=== PATIENT | male | born 1985 | race Caucasian/White ===

== ENCOUNTER 2017-03-31 08:44 | Inpatient (IN) | payer OTHER, MEDICARE ==
[~2017-03-31] VITALS: Ht 182.9 cm; Wt 86.2 kg
[~2017-03-31 08:44] MED LIST: ACETAMINOPHEN325 M1 PO; AMBEREN PO; BACTRIM 400-801 EACH PO; BACTROBAN CREAM30 G1 TOP; BISACODYL SUPP10 MG RE; CELEXA10 MG PO; CIPROFLOXACIN500 M1 PO; COLACE 100 MG100 MG PO; DANTRIUM25 MG PO; ENABLEX PO; ENABLEX15 MG PO; IBUPROFEN 800800 M1 PO; LORTAB 5 MG/5001 TAB PO; METAMUCIL POWD798 GM PO; ONE DAILY COMP1 EAC1 PO; OXYBUTYNIN; OXYBUTYNIN 5 MG5 M2 PO; SEE COMMENTS; VANCO1GM IV; VENTOLIN HFA 1818 GM INH; VITAMINC500 PO; ZINC CHELATE50 MG PO; [UNRECOGNIZED DRUG - REMARK]
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
[2017-03-31 13:40] VITALS: BP 139/74
[2017-03-31 20:00] VITALS: BP 129/75
[2017-04-01 03:50] VITALS: BP 144/81
[2017-04-01 04:32] LABS: MCH 19.5 pg (26.0-34.0); MCHC 29.8 g/dL (28.0-37.0); MCV 65.3 fL (80.0-100.0); MPV 6.5 fl. (7.2-11.1); RBC 3.07 mil/uL (4.50-6.00); RDW-CV 20.9 % (10.5-14.5); WBC 5.3 thou/uL (4.0-11.0)
[2017-04-01 04:56] LABS: ALBUMIN 1.8 g/dL (3.4-5.0); ALKALINE PHOSPHATASE 41 U/L (46-116); ANION GAP 8 mmol/L (7-16); BUN 13 mg/dL (7-18); CALCIUM 6.6 mg/dL (8.5-10.1); CHLORIDE 109 mmol/L (98-107); CO2 24 mmol/L (21-32); CREATININE 0.7 mg/dL (0.6-1.3); GLUCOSE 91 mg/dL (70-99); POTASSIUM 3.2 mmol/L (3.5-5.1); SGOT 10 U/L (15-37); SGPT 12 U/L (30-65); SODIUM 141 mmol/L (136-145); TOTAL PROTEIN 5.4 g/dL (6.4-8.2)
[2017-04-01 04:59] LABS: TOTAL BILIRUBIN < 0.1 mg/dL (<0.1-1.0)
[2017-04-01 09:00] VITALS: BP 109/53
[2017-04-01 16:59] VITALS: BP 111/57
[2017-04-01 21:00] VITALS: BP 136/67
[2017-04-02 00:37] VITALS: BP 126/74
[2017-04-02 04:00] VITALS: BP 123/68
[2017-04-02 08:00] VITALS: BP 126/63
[2017-04-02 12:50] LABS: HEMATOCRIT 26.1 % (42.0-52.0); HEMOGLOBIN 7.5 gm/dL (14.0-18.0); MCH 19.1 pg (26.0-34.0); MCHC 28.9 g/dL (28.0-37.0); MCV 66.1 fL (80.0-100.0); MPV 6.9 fl. (7.2-11.1); RBC 3.94 mil/uL (4.50-6.00); RDW-CV 21.9 % (10.5-14.5); WBC 7.2 thou/uL (4.0-11.0)
[2017-04-02 13:09] LABS: ALBUMIN 2.4 g/dL (3.4-5.0); CREATININE 0.8 mg/dL (0.6-1.3); POTASSIUM 4.2 mmol/L (3.5-5.1); TOTAL BILIRUBIN 0.1 mg/dL (<0.1-1.0); TOTAL PROTEIN 6.3 g/dL (6.4-8.2)
--- NOTE | 2017-04-02 13:42 | S ---
[address] [address] SURGICAL PATH RPT PROCEDURE Name: JESUS SANTOS Room: [address] IN ..#: [id number] Admission: 04/01/17 Date of : 85 Discharge: Report #: [id number] Path Case #: [id number] PATHOLOGY REPORT COLLECTION DATE: 03/31/2017 RECEIVED DATE: 03/31/2017 SUBMITTING PHYS: Dr. Tomas Bauer OTHER PHYS: Dr. Sun Dumont SPECIMEN(S) RECEIVED: A.Right ischial ulcer * * * * * * * * * * * * FINAL DIAGNOSIS: Right ischial ulcer: - Benign skin with nonspecific ulceration, pseudoepitheliomatous hyperplasia, mild hyperkeratosis and acute and chronic inflammation and fibrosis. (KOFI:jennie; 04/02/2017) PATHOLOGIST: Carlton Mandel M.D. REPORT ELECTRONICALLY SIGNED BY: Carlton Mandel M.D. DATE/TIME: 04/02/2017 13:42 * * * * * * * * * * * * GROSS PATHOLOGY: Received in formalin labeled "Jesus Santos, right ischial ulcer" and consists of 4 hassan skin segments ranging in size from 1.5 x 0.9 x 0.5 cm to 24.0 x 1.0 x 0.9 cm. No epidermal lesions are identified. Rigging Slinger sections are submitted as A1. (CHRISTIE; 04/01/2017) CLINICAL HISTORY: Decubitus ulcer INITIAL CPT CODE(S): A; 13235 Professional services performed by [facility] at [facility], [address] [place], [place] [address], [place] [address]. Technical services performed by [facility] at [address] [place] [address], [address], [place], [place] [address]. [facility] [address] [id number] SURGICAL PATH RPT PROCEDURE Name: JESUS SANTOS Room: [address] ADM IN [facility].#: [id number] Admission: 04/01/17 Date of : 85 Discharge: Report #: [id number] Path Case #: [id number] [place] [address] PHONE: [phone] DIRECTOR: Spencer Valdes M.D. * * * END OF REPORT * * *
[2017-04-02 17:10] VITALS: BP 121/59
[2017-04-02 20:00] VITALS: BP 108/51
[2017-04-03] VITALS: BP 99/53
[2017-04-03 05:00] VITALS: BP 110/65
[2017-04-03 08:00] VITALS: BP 99/49
[2017-04-03 20:00] VITALS: BP 114/58
[2017-04-04] VITALS: BP 113/59
[2017-04-04 08:50] VITALS: BP 126/62
[2017-04-04 16:00] VITALS: BP 128/79
[2017-04-04 20:15] VITALS: BP 125/54
[2017-04-05 11:37] VITALS: BP 118/53
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
[2017-04-05 16:00] VITALS: BP 120/59
[2017-04-05 21:05] VITALS: BP 126/54
[2017-04-06 08:25] VITALS: BP 104/62
[2017-04-06 16:00] VITALS: BP 108/51
[2017-04-07] VITALS: BP 112/47
[2017-04-07 09:45] VITALS: BP 113/59
[2017-04-07 15:57] VITALS: BP 117/52
[2017-04-07 19:40] VITALS: BP 125/53
[2017-04-08 05:47] LABS: ABSOLUTE EOSINOPHILS 0.7 thou/uL (0.0-0.7); ABSOLUTE LYMPHOCYTES 1.7 thou/uL (0.8-5.3); ABSOLUTE MONOCYTES 0.7 thou/uL (0.0-1.2); ABSOLUTE NEUTROPHILS 6.7 thou/uL (1.6-8.1); BASOPHILS 0.4 %; EOSINOPHILS 7.6 %; LYMPHOCYTES 16.9 %; MCH 19.2 pg (26.0-34.0); MCHC 29.2 g/dL (28.0-37.0); MCV 65.6 fL (80.0-100.0); MONOCYTES 7.1 %; MPV 7.1 fl. (7.2-11.1); NUCLEATED RBCS 0 /100WBC; PLATELET COUNT* 445 thou/uL (150-400); RBC 3.67 mil/uL (4.50-6.00); RDW-CV 20.4 % (10.5-14.5); WBC 9.9 thou/uL (4.0-11.0)
[2017-04-08 06:14] LABS: ALBUMIN 2.5 g/dL (3.4-5.0); CREATININE 0.9 mg/dL (0.6-1.3); POTASSIUM 3.7 mmol/L (3.5-5.1); TOTAL BILIRUBIN 0.1 mg/dL (<0.1-1.0); TOTAL PROTEIN 6.6 g/dL (6.4-8.2)
[2017-04-08 06:32] LABS: ANISOCYTOSIS 2+; HYPOCHROMASIA 3+; MICROCYTES 3+
[2017-04-08 06:33] LABS: POLYCHROMASIA 1+
[2017-04-08 07:56] LABS: ESR (SEDRATE) 89 mm/hr (0-15)
[2017-04-08 09:00] VITALS: BP 122/68
[2017-04-08 12:14] VITALS: BP 105/51; BP 110/50; BP 117/42; BP 120/58
[2017-04-08 16:15] VITALS: BP 120/58
[2017-04-09] VITALS: BP 111/46
[2017-04-09 06:47] LABS: HEMATOCRIT 28.8 % (42.0-52.0); HEMOGLOBIN 8.7 gm/dL (14.0-18.0); MCH 20.5 pg (26.0-34.0); MCHC 30.2 g/dL (28.0-37.0); MPV 7.2 fl. (7.2-11.1); RBC 4.24 mil/uL (4.50-6.00); RDW-CV 22.4 % (10.5-14.5); WBC 7.9 thou/uL (4.0-11.0)
[2017-04-09 07:02] LABS: CALCIUM 8.5 mg/dL (8.5-10.1); CREATININE 0.9 mg/dL (0.6-1.3); POTASSIUM 4.3 mmol/L (3.5-5.1)
[2017-04-09 08:45] VITALS: BP 116/50
[2017-04-09 16:35] VITALS: BP 107/45
[2017-04-10 00:08] VITALS: BP 104/55
[2017-04-10 06:26] LABS: HEMATOCRIT 28.2 % (42.0-52.0); HEMOGLOBIN 8.5 gm/dL (14.0-18.0); MCH 20.7 pg (26.0-34.0); MCHC 30.2 g/dL (28.0-37.0); MCV 68.6 fL (80.0-100.0); MPV 7.2 fl. (7.2-11.1); RBC 4.11 mil/uL (4.50-6.00); RDW-CV 23.2 % (10.5-14.5); WBC 10.6 thou/uL (4.0-11.0)
[2017-04-10 06:32] LABS: CALCIUM 8.1 mg/dL (8.5-10.1); POTASSIUM 4.3 mmol/L (3.5-5.1)
[2017-04-10 08:10] VITALS: BP 114/58
[2017-04-10 13:31] VITALS: BP 114/58
[2017-04-10] MEDS ORDERED: MERREM1 GM IV (13:33)
[2017-04-10 16:21] VITALS: BP 116/48
[2017-04-10 16:53] LABS: URINE BILIRUBIN NEGATIVE (Negative); URINE BLOOD 2+ (Negative); URINE CLARITY CLEAR; URINE COLOR YELLOW; URINE GLUCOSE-RANDOM NEGATIVE (Negative); URINE KETONES NEGATIVE (Negative); URINE LEUKOCYTES-REFLEX 1+ (Negative); URINE NITRITE-REFLEX NEGATIVE (Negative); URINE PROTEIN NEGATIVE (Negative); URINE UROBILINOGEN 0.2 E.U./dl (0.2-1.0)
[2017-04-10 17:03] LABS: BACTERIA-REFLEX 1-9 Few /HPF (None Seen); CASTS None Seen /LPF (None Seen); CRYSTALS None Seen /LPF (None Seen); SQUAMOUS >10 Many /LPF (0-3); URINE RBC 3-10 Few /HPF (0-2); URINE WBC-REFLEX 6-15 Few /HPF (0-5)
[2017-04-10 19:45] VITALS: BP 114/68
[2017-04-11 04:17] LABS: HEMATOCRIT 25.9 % (42.0-52.0); HEMOGLOBIN 7.9 gm/dL (14.0-18.0); MCHC 30.5 g/dL (28.0-37.0); MCV 68.9 fL (80.0-100.0); MPV 7.2 fl. (7.2-11.1); RBC 3.76 mil/uL (4.50-6.00); RDW-CV 23.6 % (10.5-14.5); WBC 6.7 thou/uL (4.0-11.0)
[2017-04-11 04:27] LABS: CALCIUM 7.9 mg/dL (8.5-10.1); CREATININE 0.9 mg/dL (0.6-1.3); POTASSIUM 4.1 mmol/L (3.5-5.1)
[2017-04-11 08:24] VITALS: BP 118/72
[2017-04-11 11:27] VITALS: BP 104/60
[2017-04-11 16:15] VITALS: BP 120/63; BP 122/61; BP 125/69; BP 127/62; BP 139/77
[2017-04-11 22:43] LABS: HEMATOCRIT 30.9 % (42.0-52.0); HEMOGLOBIN 9.4 gm/dL (14.0-18.0)
[2017-04-12 09:25] VITALS: BP 118/65
[2017-04-12 15:50] VITALS: BP 121/71
[2017-04-12 20:20] VITALS: BP 125/48
[2017-04-13 08:05] VITALS: BP 106/34
[2017-04-13 09:00] VITALS: BP 117/43
[2017-04-13 16:00] VITALS: BP 118/59
[2017-04-13 16:24] LABS: HEMATOCRIT 30.9 % (42.0-52.0); HEMOGLOBIN 9.5 gm/dL (14.0-18.0); MCH 21.8 pg (26.0-34.0); MCHC 30.9 g/dL (28.0-37.0); MCV 70.6 fL (80.0-100.0); MPV 7.1 fl. (7.2-11.1); NUCLEATED RBCS 0 /100WBC; PLATELET COUNT* 445 thou/uL (150-400); RBC 4.38 mil/uL (4.50-6.00); RDW-CV 25.1 % (10.5-14.5); WBC 7.8 thou/uL (4.0-11.0)
[2017-04-13 18:31] LABS: ABSOLUTE BASOPHILS 0.1 thou/uL (0.0-0.2); ABSOLUTE EOSINOPHILS 0.5 thou/uL (0.0-0.7); ABSOLUTE LYMPHOCYTES 1.7 thou/uL (0.8-5.3); ABSOLUTE MONOCYTES 0.6 thou/uL (0.0-1.2); ABSOLUTE NEUTROPHILS 4.8 thou/uL (1.6-8.1); PLATELET ESTIMATE INCREASED
[2017-04-13 18:33] LABS: ANISOCYTOSIS 2+; HYPOCHROMASIA 2+; MICROCYTES 2+
[2017-04-13 20:20] VITALS: BP 124/47
[2017-04-14 06:41] LABS: HEMATOCRIT 29.8 % (42.0-52.0); HEMOGLOBIN 9.1 gm/dL (14.0-18.0); MCH 21.8 pg (26.0-34.0); MCHC 30.7 g/dL (28.0-37.0); MCV 71.1 fL (80.0-100.0); MPV 7.5 fl. (7.2-11.1); RBC 4.19 mil/uL (4.50-6.00); RDW-CV 24.9 % (10.5-14.5); WBC 6.5 thou/uL (4.0-11.0)
[2017-04-14 06:52] LABS: ALBUMIN 2.4 g/dL (3.4-5.0); CREATININE 0.8 mg/dL (0.6-1.3); POTASSIUM 3.9 mmol/L (3.5-5.1); TOTAL BILIRUBIN 0.1 mg/dL (<0.1-1.0); TOTAL PROTEIN 6.3 g/dL (6.4-8.2)
[2017-04-14 08:45] VITALS: BP 125/72
[2017-04-14 16:00] VITALS: BP 114/62
[2017-04-14 20:15] VITALS: BP 118/52
[2017-04-15 04:52] LABS: HEMATOCRIT 29.5 % (42.0-52.0); HEMOGLOBIN 8.9 gm/dL (14.0-18.0); MCH 21.7 pg (26.0-34.0); MCHC 30.3 g/dL (28.0-37.0); MCV 71.6 fL (80.0-100.0); MPV 7.7 fl. (7.2-11.1); RBC 4.12 mil/uL (4.50-6.00); RDW-CV 25.3 % (10.5-14.5); WBC 7.7 thou/uL (4.0-11.0)
[2017-04-15 05:06] LABS: CREATININE 0.8 mg/dL (0.6-1.3)
[2017-04-15 09:30] VITALS: BP 125/53
[2017-04-15 15:46] VITALS: BP 99/51
[2017-04-16] VITALS: BP 115/48
[2017-04-16 07:39] LABS: HEMATOCRIT 32.5 % (42.0-52.0); MCH 21.8 pg (26.0-34.0); MCHC 30.7 g/dL (28.0-37.0); MCV 71.2 fL (80.0-100.0); MPV 7.1 fl. (7.2-11.1); RBC 4.56 mil/uL (4.50-6.00); RDW-CV 25.5 % (10.5-14.5); WBC 6.6 thou/uL (4.0-11.0)
[2017-04-16 07:50] LABS: CALCIUM 8.4 mg/dL (8.5-10.1); CREATININE 0.9 mg/dL (0.6-1.3); POTASSIUM 4.5 mmol/L (3.5-5.1)
[2017-04-16 08:10] VITALS: BP 110/66
[2017-04-16] MEDS ORDERED: NICOTINE TRANSD21 M1 TRANSDERM (10:14)
[2017-04-16] MEDS ORDERED: MUCINEX600 MG PO (10:14)
[2017-04-16] MEDS ORDERED: IBUPROFEN 400400 M2 PO (10:14)
[2017-04-16] MEDS ORDERED: MELATONIN5 M1 PO (10:14)
[2017-04-16] MEDS ORDERED: HYDROCODON-ACE1 EAC7 PO (10:14)
[2017-04-16] MEDS ORDERED: FERREX 150 PLU1 EAC1 PO (10:14)
[2017-04-16] MEDS ORDERED: FOLIC ACID1 MG PO (10:14)
[2017-04-16] MEDS ORDERED: PHENERGAN 25 MG25 M1 PO (10:14)
[2017-04-16] MEDS ORDERED: AMBIEN 5 MG TABL5 M1 PO (10:14)
[2017-04-16 13:14] VITALS: BP 114/58
--- NOTE | 2017-04-21 12:18 | OP ---
[address] [address] OPERATIVE REPORT Name: DONNAJESUS CASTILLO Room: [address] IN M.R.#: [id number] Admission: 04/01/17 Attend Phys: Tomas Bauer, Discharge: 04/16/17 Date of : 85 Report #: [id number] THIS REPORT FOR: //name// CC: Sun Bauer DATE OF SERVICE: 03/31/2017 PREOPERATIVE DIAGNOSIS: Paraplegia with stage IV right ischial decubitus ulcer, 15 cm x 7 cm. POSTOPERATIVE DIAGNOSIS: Paraplegia with stage IV right ischial decubitus ulcer, 15 cm x 7 cm. PROCEDURE: Excision of right ischial decubitus ulcer, partial ostectomy, partial ischiectomy and reconstruction with a hamstring myocutaneous flap. SURGEON: Tomas Bauer MD ANESTHESIA: General. INDICATIONS: I was asked to see this 31-year-old male who has been paraplegic for many years, presenting this time with a very large and deep right ischial decubitus ulcer of 2 years' duration and says that this is getting worse. He indeed had a very large extensive and deep right ischial decubitus ulcer with exposed ischial bone. Details of the operative procedure including risks, benefits, alternative treatments and possible complications like infection, bleeding, hematoma, scar, possibility of recurrence of the wound were all explained. DESCRIPTION OF PROCEDURE: Vancomycin was given intravenously within 1 hour prior to the commencement of surgery. While he was in the holding area, the surgical site was marked with the marking pen and the surgical details were again explained to the patient and to the family. He was then taken to the operating room and was placed in supine position. He was given endotracheal general anesthesia. After that, he was placed in prone position, taking care of all the pressure areas. The entire right gluteal area, and posterior thigh were cleaned, prepped with Betadine solution and draped with sterile sheets. First methylene blue dye was used to stain the lining of the ulcer. An incision was given around the decubitus ulcer using sharp dissection, first with knife and then with electrocautery. The entire ulcer lining was surgically excised. Specimen was sent for pathology[place] [address] OPERATIVE REPORT Name: DONNAJESUS CASTILLO Room: [address] IN [facility].#: [id number] Admission: 04/01/17 Attend Phys: Tomas Bauer, Discharge: 04/16/17 Date of : 85 Report #: [id number] ischiectomy of the ischial bone was accomplished using an osteotome. The sharp bony ends were smoothened with a rasp. The pocket was irrigated out with copious amount of normal saline solution, containing bacitracin. Hemostasis was accomplished with cautery. Reconstruction on this fairly large and deep wound was accomplished using a V-Y advancement flap based on hamstring muscles. The flap outline was marked on the skin surface. The skin incision was given and using further dissection with electrocautery, the flap was then isolated, dissected out and advanced. Then, #15 size AMANDA drain was placed in the wound and the definitive closure was with 0 Vicryl for the deeper tissues and 2-0 nylon and hugo for the skin. At the end of the procedure, the flap appeared vascular. Estimated blood loss was about 30 mL. Dressings were applied. He was then placed in supine position and transferred to the recovery room in stable condition. There were no intraoperative complications. <ELECTRONICALLY SIGNED> By: Tomas Bauer MD 04/21/17 1218 1352 [id number] Bauer MD /nt
[2017-05-26] MEDS ORDERED: DIPHENHIST50 MG PO (11:49)
[2017-05-26] MEDS ORDERED: JUVEN PACKET1 EAC1 PO (11:55)
[2017-05-26] MEDS ORDERED: NYAMYC15 GM TOP (11:57)
[2017-05-26] MEDS ORDERED: ENOXAPARIN40 MG/0.1 SUBQ (11:58)
[2017-05-26] MEDS ORDERED: PROTONIX40 M1 PO (11:59)
[2017-05-26] MEDS ORDERED: MIRALAX17 GM PO (11:59)
[2017-05-26] MEDS ORDERED: POLYSACCHARIDE150 MG PO (12:00)
[2017-05-26] MEDS ORDERED: SECURA PROTECTI50 GM TOP (12:03)
[2017-05-28] MEDS ORDERED: IBUPROFEN 400400 M2 PO (09:32)
[2017-05-28] MEDS ORDERED: HYDROCODON-ACE1 EAC7 PO (09:32)
[2017-05-28] MEDS ORDERED: HYDROCORTISONE30 G9 TOP (09:33)
[2017-05-28] MEDS ORDERED: ZINC OXIDE56.7 GM TOP (09:33)
[2017-05-28] MEDS ORDERED: TUMS PO (09:33)
[2017-05-28] MEDS ORDERED: BISAC-EVAC10 MG RECTAL (09:33)
== END 2017-04-16 16:35 | DRG 981 ==
LOC: M.SUR 08:44 → M.ORTHSURG 08:44 → M.SUR 13:44 → M.ORTHSURG 13:44 → M.SUR 13:48 → M.ORTHSURG 04-01 12:06 → M.3W 04-04 16:07
PROVIDERS: Family Medicine; Internal Medicine; Specialist; ADMIT Plastic Surgery
DX: L89.214 Pressure ulcer of right hip, stage 4 (principal); E44.0 Moderate protein-calorie malnutrition; G82.20 Paraplegia, unspecified; F17.210 Nicotine dependence, cigarettes, uncomplicated; N31.9 Neuromuscular dysfunction of bladder, unspecified; N20.0 Calculus of kidney; D50.0 Iron deficiency anemia secondary to blood loss (chronic); B96.5 Pseudomonas (aeruginosa) (mallei) (pseudomallei) as the cause of diseases classified elsewhere; B96.1 Klebsiella pneumoniae [K. pneumoniae] as the cause of diseases classified elsewhere; Z88.1 Allergy status to other antibiotic agents; Z91.040 Latex allergy status; Z22.322 Carrier or suspected carrier of Methicillin resistant Staphylococcus aureus; Z79.899 Other long term (current) drug therapy; Z68.25 Body mass index [BMI] 25.0-25.9, adult

== ENCOUNTER 2017-04-16 19:06 | Inpatient (IN) | payer OTHER, MEDICARE ==
[~2017-04-16 19:06] MED LIST changes: +AMBIEN 5 MG TABL5 M1 PO; +FERREX 150 PLU1 EAC1 PO; +FOLIC ACID1 MG PO; +HYDROCODON-ACE1 EAC7 PO; +IBUPROFEN 400400 M2 PO; +MELATONIN5 M1 PO; +MERREM1 GM IV; +MUCINEX600 MG PO; +NICOTINE TRANSD21 M1 TRANSDERM; +PHENERGAN 25 MG25 M1 PO
[2017-04-16 19:10] VITALS: BP 132/67
[2017-04-16 20:43] LABS: ABSOLUTE BASOPHILS 0.1 thou/uL (0.0-0.2); ABSOLUTE EOSINOPHILS 0.7 thou/uL (0.0-0.7); ABSOLUTE LYMPHOCYTES 1.5 thou/uL (0.8-5.3); ABSOLUTE MONOCYTES 0.5 thou/uL (0.0-1.2); ABSOLUTE NEUTROPHILS 6.1 thou/uL (1.6-8.1); BASOPHILS 1.1 %; EOSINOPHILS 8.3 %; MCHC 31.1 g/dL (28.0-37.0); MCV 70.9 fL (80.0-100.0); MPV 7.2 fl. (7.2-11.1); NUCLEATED RBCS 0 /100WBC; PLATELET COUNT* 411 thou/uL (150-400); POLYS 67.6 %; RBC 4.51 mil/uL (4.50-6.00); RDW-CV 25.8 % (10.5-14.5)
[2017-04-16 20:50] LABS: CALCIUM 8.3 mg/dL (8.5-10.1); CREATININE 0.8 mg/dL (0.6-1.3); POTASSIUM 4.3 mmol/L (3.5-5.1)
[2017-04-16 20:55] LABS: ALBUMIN 2.9 g/dL (3.4-5.0); TOTAL BILIRUBIN 0.2 mg/dL (<0.1-1.0)
[2017-04-16 21:06] LABS: ANISOCYTOSIS 2+; PLATELET ESTIMATE INCREASED; POIKILOCYTOSIS 1+; POLYCHROMASIA 1+
[2017-04-16 21:07] LABS: HYPOCHROMASIA 1+; MICROCYTES 2+; OVALOCYTES 1+; TARGET CELLS 1+
[2017-04-16 21:43] VITALS: BP 121/65
[2017-04-16 23:00] VITALS: BP 125/65
[2017-04-17 08:50] VITALS: BP 115/48
[2017-04-17 17:45] VITALS: BP 105/48
[2017-04-18 00:29] VITALS: BP 119/56
[2017-04-18 08:40] VITALS: BP 116/65
[2017-04-18 16:05] VITALS: BP 120/54
[2017-04-18 20:15] VITALS: BP 121/66
[2017-04-19 08:00] VITALS: BP 115/63
[2017-04-19 17:47] VITALS: BP 113/56
[2017-04-20 00:21] VITALS: BP 135/60
[2017-04-20 16:30] VITALS: BP 122/65
[2017-04-21] VITALS: BP 129/71
[2017-04-21 08:00] VITALS: BP 114/67
[2017-04-21 16:15] VITALS: BP 110/53
[2017-04-22 00:18] VITALS: BP 132/67
[2017-04-22 07:35] VITALS: BP 106/38
[2017-04-22 15:03] VITALS: BP 106/38
[2017-05-26] MEDS ORDERED: DIPHENHIST50 MG PO (11:49)
[2017-05-26] MEDS ORDERED: JUVEN PACKET1 EAC1 PO (11:55)
[2017-05-26] MEDS ORDERED: NYAMYC15 GM TOP (11:57)
[2017-05-26] MEDS ORDERED: ENOXAPARIN40 MG/0.1 SUBQ (11:58)
[2017-05-26] MEDS ORDERED: MIRALAX17 GM PO (11:59)
[2017-05-26] MEDS ORDERED: PROTONIX40 M1 PO (11:59)
[2017-05-26] MEDS ORDERED: POLYSACCHARIDE150 MG PO (12:00)
[2017-05-26] MEDS ORDERED: SECURA PROTECTI50 GM TOP (12:03)
[2017-05-28] MEDS ORDERED: IBUPROFEN 400400 M2 PO (09:32)
[2017-05-28] MEDS ORDERED: HYDROCODON-ACE1 EAC7 PO (09:32)
[2017-05-28] MEDS ORDERED: HYDROCORTISONE30 G9 TOP (09:33)
[2017-05-28] MEDS ORDERED: BISAC-EVAC10 MG RECTAL (09:33)
[2017-05-28] MEDS ORDERED: ZINC OXIDE56.7 GM TOP (09:33)
[2017-05-28] MEDS ORDERED: TUMS PO (09:33)
== END 2017-04-22 17:39 | DRG 592 ==
LOC: M.ERS 19:06 → M.3W 20:45 → M.TBA-ER 20:45 → M.3W 21:37
PROVIDERS: Physician Assistant; ADMIT Internal Medicine
DX: L89.94 Pressure ulcer of unspecified site, stage 4 (principal); G82.20 Paraplegia, unspecified; N31.9 Neuromuscular dysfunction of bladder, unspecified; N20.0 Calculus of kidney; S29.9XXA Unspecified injury of thorax, initial encounter; X58.XXXA Exposure to other specified factors, initial encounter; Y93.89 Activity, other specified; Z79.899 Other long term (current) drug therapy; Z88.8 Allergy status to other drugs, medicaments and biological substances; Z88.1 Allergy status to other antibiotic agents; Z91.040 Latex allergy status; Y92.89 Other specified places as the place of occurrence of the external cause; Y99.8 Other external cause status